=== PATIENT | female | born 1980 | race African-American/Black ===

== ENCOUNTER 2017-08-07 16:18 | Emergency (ER) | payer SELFPAY ==
[~2017-08-07] VITALS: Ht 180.3 cm; Wt 110.0 kg
[2017-08-07 17:03] VITALS: BP 164/76; PULSE 86; RESP 16; TEMP 98.4; O2SAT 99
[2017-08-07] MEDS ORDERED: AMOX875T PO (19:36)
--- NOTE | 2017-08-07 19:39 | PD ---
HPI Chief Complaint: Cold / Flu Symptoms Time Seen by Provider: 18:14 Travel History International Travel<30 days: No Contact w/Intl Traveler<30days: No Traveled to known affect area: No History of Present Illness HPI 36-year-old female that presents to the ED for evaluation of cold like symptoms. Patient states that she's had cold like symptoms for about 3 days now. Low-grade fever. Congestion and cough. Denies any history of asthma or COPD. She does state that she is currently . Denies any chest pain. Cough is productive. No other medical issues. She states that she's in contact with a lot of people who are sick at home. States taking Benadryl with some relief. PFSH Past Medical History Medical History: Denies Significant Hx Tetanus Vaccination: < 5 Years Influenza Vaccination: No ?: Not Past Surgical History Surgical History: No Previous Surgery Social History Alcohol Use: Yes (SOCIAL) Tobacco Use: Yes (SOCIAL) Substance Use: No Allergies-Medications (Allergen,Severity, Reaction): Coded Allergies: loratadine (Verified Allergy, Unknown, 08/07/17) Reported Meds & Prescriptions Reported Meds & Active Scripts Active Amoxicillin 875 Mg Tab 875 Mg PO BID 10 Days Review of Systems Except as stated in HPI: all other systems reviewed are Neg Physical Exam Narrative GENERAL: Well-nourished, well-developed patient in no apparent distress. SKIN: Warm and dry. HEAD: Atraumatic. Normocephalic. EYES: Pupils equal and round reactive to light and accommodation. No scleral icterus. No injection or drainage. ENT: No nasal bleeding or discharge. Mucous membranes pink and moist. TMs are clear with no sign of infection or perforation. No mastoid tenderness. Ear canals are intact bilaterally. No lymphadenopathy. Nostril mucosa is red and moist with clear mucus noted. No sinus tenderness to palpation noted. Tonsils are not enlarged or swollen. No ulvua Deviation. Tongue is midline. NECK: Trachea midline. No JVD. No meningeal signs noted CARDIOVASCULAR: Regular rate and rhythm. RESPIRATORY: No accessory muscle use. Rales heard in the lower lung thacker. Breath sounds equal bilaterally. GASTROINTESTINAL: Abdomen soft, non-tender, nondistended. Hepatic and splenic margins not palpable. MUSCULOSKELETAL: Extremities without clubbing, cyanosis, or edema. No obvious deformities. NEUROLOGICAL: Awake and alert. No obvious cranial nerve deficits. Motor grossly within normal limits. Five out of 5 muscle strength in the arms and legs. Normal speech. PSYCHIATRIC: Appropriate mood and affect; insight and judgment normal. Data Data Last Documented VS Vital Signs Date Time Temp Pulse Resp B/P (MAP) Pulse Ox O2 Delivery O2 Flow Rate FiO2 08/07/17 18:13 Room Air 08/07/17 17:03 98.4 86 16 164/76 (105) 99 Orders Orders Ed Discharge Order (08/07/17 19:36) MDM Medical Decision Making Medical Screen Exam Complete: Yes Emergency Medical Condition: Yes Medical Record Reviewed: Yes Differential Diagnosis Pneumonia versus bronchitis versus sinusitis versus URI Narrative Course 36-year-old female that presents to the ED for evaluation of cold like symptoms. Patient was properly examined and was found to have signs and symptoms consistent appears to be likely or URI. Patient is currently . I do recommend starting patient on amoxicillin. Patient was given a note for work. Told to take OTC meds as needed. See ED worsening symptoms. Follow with PCP. Diagnosis Primary Impression: URI (upper respiratory infection) Qualified Codes: J06.9 - Acute upper respiratory infection, unspecified Patient Instructions: General Instructions Departure Forms: Work Release, Enter return to work date: Aug 08, 2017 Tests/Procedures Additional Instructions: Tylenol for pain and fever. Drink plenty of fluids. Follow-up with PCP. See ED for worsening symptoms. Med/Other Pt SpecificInfo: Prescription(s) given Scripts Amoxicillin (Amoxicillin) 875 Mg Tab 875 MG PO BID for Infection for 10 Days, #20 TAB 0 Refills Prov: Carlos Brown MD 08/07/17 Disposition: 01 DISCHARGE HOME Condition: Stable Myles Motley Aug 07, 2017 19:39
== END 2017-08-07 19:51 | disposition home or self-care (01) ==
LOC: PHEFT 16:18
DX: O99.519 Diseases of the respiratory system complicating pregnancy, unspecified trimester (principal); J06.9 Acute upper respiratory infection, unspecified; O99.330 Smoking (tobacco) complicating pregnancy, unspecified trimester; Z72.0 Tobacco use
CPT/HCPCS: 99283

== ENCOUNTER 2017-11-04 14:27 | Emergency (ER) | payer SELFPAY ==
[~2017-11-04] VITALS: Ht 177.8 cm; Wt 90.0 kg
[~2017-11-04 14:27] MED LIST: AMOX875T PO
[2017-11-04 14:32] VITALS: BP 211/107; PULSE 105; RESP 16; TEMP 98.6; O2SAT 97
[2017-11-04 15:07] LABS: AUTOMATED NEUTROPHIL # 6.5 TH/MM3 (1.8-7.7); BASOPHIL # 0.1 TH/MM3 (0-0.2); BASOPHIL % 0.6 % (0.0-2.0); EOSINOPHIL # 0.2 TH/MM3 (0-0.4); EOSINOPHIL % 2.2 % (0.0-4.0); HEMATOCRIT 40.3 % (35.0-46.0); HEMOGLOBIN 13.3 GM/DL (11.6-15.3); LYMPH % 24.2 % (9.0-44.0); LYMPHOCYTE # 2.4 TH/MM3 (1.0-4.8); MEAN CELL VOLUME 88.9 FL (80.0-100.0); MEAN CORPUSCULAR HEMOGLOBIN 29.5 PG (27.0-34.0); MEAN CORPUSCULAR HGB CONC 33.1 % (32.0-36.0); MONO % 7.2 % (0.0-8.0); MONOCYTE # 0.7 TH/MM3 (0-0.9); NEUT % 65.8 % (16.0-70.0); PLATELET COUNT 260 TH/MM3 (150-450); RED BLOOD COUNT 4.53 MIL/MM3 (4.00-5.30); RED CELL DISTRIBUTION WIDTH 13.6 % (11.6-17.2); WHITE BLOOD COUNT 9.8 TH/MM3 (4.0-11.0)
--- NOTE | 2017-11-04 15:08 | PD ---
HPI Chief Complaint: Psychiatric Symptoms Time Seen by Provider: 14:33 Travel History International Travel<30 days: No Contact w/Intl Traveler<30days: No Traveled to known affect area: No History of Present Illness HPI 36-year-old female that presents to the ED for evaluation of psychiatric evaluation. Patient was Méndez acted by police after apparently she made suicidal threats to her significant other. Apparently patient is from her significant other. Patient made suicidal threats in an argument. Per patient she has no desire to actually commit suicide she regressing when she said. Patient she was in about argument with her significant other. She does per Méndez and has a history of bipolar disorder. She apparently per Méndez act states that she was not take all her medications and end her life. Patient denies doing this and denies trying to do this. Per patient he was purely secondary to argument. Denies any medical problems at this time. She does appear to be somewhat anxious on exam and very tearful. History is somewhat limited because of this. She denies any other medical issues. She denies any drugs or alcohol. Denies any homicidal ideation. Symptoms appear to have worsened secondary to separation. PFSH Past Medical History ?: Not Social History Alcohol Use: Yes (SOCIAL) Tobacco Use: Yes (SOCIAL) Substance Use: No Allergies-Medications (Allergen,Severity, Reaction): Coded Allergies: loratadine (Verified Allergy, Unknown, 11/04/17) Reported Meds & Prescriptions Reported Meds & Active Scripts Active Amoxicillin 875 Mg Tab 875 Mg PO BID 10 Days Review of Systems Except as stated in HPI: all other systems reviewed are Neg Physical Exam Narrative GENERAL: SKIN: Warm and dry. HEAD: Atraumatic. Normocephalic. EYES: Pupils equal and round. No scleral icterus. No injection or drainage. ENT: No nasal bleeding or discharge. Mucous membranes pink and moist. NECK: Trachea midline. No JVD. CARDIOVASCULAR: Regular rate and rhythm. RESPIRATORY: No accessory muscle use. Clear to auscultation. Breath sounds equal bilaterally. GASTROINTESTINAL: Abdomen soft, non-tender, nondistended. Hepatic and splenic margins not palpable. MUSCULOSKELETAL: Extremities without clubbing, cyanosis, or edema. No obvious deformities. Full range of motion of the upper and lower extremities bilaterally. 2+ pulses bilaterally. NEUROLOGICAL: Awake and alert. No obvious cranial nerve deficits. Motor grossly within normal limits. Five out of 5 muscle strength in the arms and legs. Normal speech. PSYCHIATRIC: Anxious mood and affect; insight and judgment normal. Data Data Last Documented VS Vital Signs Date Time Temp Pulse Resp B/P (MAP) Pulse Ox O2 Delivery O2 Flow Rate FiO2 11/04/17 15:25 99.3 91 18 171/104 (126) 95 Room Air Orders Orders Complete Blood Count With Diff (11/04/17 14:33) Comprehensive Metabolic Panel (11/04/17 14:33) Thyroid Stimulating Hormone (11/04/17 14:33) Urinalysis - C+S If Indicated (11/04/17 14:33) Ed Urine Pregnancytest Poc (11/04/17 14:33) Psych Screen (11/04/17 14:33) Drug Screen, Random Urine (11/04/17 14:33) Alcohol (Ethanol) (11/04/17 14:33) Diet Regular Basic (11/04/17 Dinner) Lorazepam (Ativan) (11/04/17 15:15) Clonidine (Catapres) (11/04/17 15:15) Labs Laboratory Tests Test 11/04/17 14:43 White Blood Count 9.8 TH/MM3 Red Blood Count 4.53 MIL/MM3 Hemoglobin 13.3 GM/DL Hematocrit 40.3 % Mean Corpuscular Volume 88.9 FL Mean Corpuscular Hemoglobin 29.5 PG Mean Corpuscular Hemoglobin Concent 33.1 % Red Cell Distribution Width 13.6 % Platelet Count 260 TH/MM3 Mean Platelet Volume 9.0 FL Neutrophils (%) (Auto) 65.8 % Lymphocytes (%) (Auto) 24.2 % Monocytes (%) (Auto) 7.2 % Eosinophils (%) (Auto) 2.2 % Basophils (%) (Auto) 0.6 % Neutrophils # (Auto) 6.5 TH/MM3 Lymphocytes # (Auto) 2.4 TH/MM3 Monocytes # (Auto) 0.7 TH/MM3 Eosinophils # (Auto) 0.2 TH/MM3 Basophils # (Auto) 0.1 TH/MM3 CBC Comment DIFF FINAL Differential Comment Blood Urea Nitrogen 10 MG/DL Creatinine 0.91 MG/DL Random Glucose 101 MG/DL Total Protein 8.1 GM/DL Albumin 4.2 GM/DL Calcium Level 8.9 MG/DL Alkaline Phosphatase 80 U/L Aspartate Amino Transf (AST/SGOT) 17 U/L Alanine Aminotransferase (ALT/SGPT) 30 U/L Total Bilirubin 0.2 MG/DL Sodium Level 139 MEQ/L Potassium Level 3.8 MEQ/L Chloride Level 108 MEQ/L Carbon Dioxide Level 20.5 MEQ/L Anion Gap 11 MEQ/L Estimat Glomerular Filtration Rate 86 ML/MIN Thyroid Stimulating Hormone 3rd Gen 1.380 uIU/ML Ethyl Alcohol Level LESS THAN 3 MG/DL MDM Medical Decision Making Medical Screen Exam Complete: Yes Emergency Medical Condition: Yes Medical Record Reviewed: Yes Interpretation(s) CBC & BMP Diagram 11/04/17 14:43 Total Protein 8.1, Albumin 4.2, Calcium Level 8.9, Alkaline Phosphatase 80, Aspartate Amino Transf (AST/SGOT) 17, Alanine Aminotransferase (ALT/SGPT) 30, Total Bilirubin 0.2 Differential Diagnosis Depression versus suicidal ideation versus anxiety versus adjustment disorder versus mood disorder versus bipolar disorder versus schizophrenia versus paranoid disorder versus psychosis versus substance abuse versus alcohol abuse versus alcohol induced psychosis versus homicidality addition versus cutting versus personality disorder Narrative Course 36-year-old female that presents to the ED for evaluation of psych. Patient was properly examined and was found to have signs and symptoms consistent with psychiatric illness. Labs were ordered. Patient was found to have a high blood pressure in the 200s systolic. No history of high blood pressure but she is very tearful on exam. I order clonidine and Ativan to help her calm down. Patient will be medically clear pending labs. Okay to be seen by psych. Mental health screening was discussed with the patient. Diagnosis Primary Impression: Adjustment disorder Qualified Codes: F43.22 - Adjustment disorder with anxiety Myles Motley Nov 04, 2017 15:08
[2017-11-04] MEDS ORDERED: LORazepam 0.5 MG TAB PO ONE (15:15)
[2017-11-04] MEDS ORDERED: cloNIDine HCL 0.1 MG TAB PO ONE (15:15)
[2017-11-04 15:17] VITALS: BP_SYST 171; BP_SYST 200; BP_DIAS 104; BP_DIAS 98
[2017-11-04 15:25] VITALS: BP 171/104; PULSE 91; RESP 18; TEMP 99.3; O2SAT 95
[2017-11-04 15:38] LABS: ALBUMIN 4.2 GM/DL (3.4-5.0); ALT (GPT) 30 U/L (10-53); AST (GOT) 17 U/L (15-37); BICARBONATE 20.5 MEQ/L (21.0-32.0); BLOOD UREA NITROGEN 10 MG/DL (7-18); CALCIUM 8.9 MG/DL (8.5-10.1); CHLORIDE 108 MEQ/L (98-107); CREATININE 0.91 MG/DL (0.50-1.00); GLOMERULAR FILTRATION RATE 86 ML/MIN (>89); GLUCOSE,RANDOM 101 MG/DL (74-106); SODIUM (NA) 139 MEQ/L (136-145)
[2017-11-04 15:48] LABS: ALKALINE PHOSPHATASE 80 U/L (45-117); TOTAL BILIRUBIN ADULT 0.2 MG/DL (0.2-1.0); TOTAL PROTEIN 8.1 GM/DL (6.4-8.2)
[2017-11-04 16:42] VITALS: BP 169/92; PULSE 82; RESP 16; TEMP 97.6; O2SAT 97
--- NOTE | 2017-11-04 17:22 | PD ---
History of Present Illness Chief Complaint: Psychiatric Symptoms Time Seen by Provider: 16:30 Travel History International Travel<30 Days: No Contact w/Intl Traveler<30days: No Known affected area: No History of Present Illness: Patient is a 36-year-old -[place] female with 3 children placed under Méndez act by the [facility] [employer]. Per Méndez act states," Kandace made suicidal threats to kill herself to [place] he did not return home. They stated she was going to overdose on pain pills that were inside the house. Washingtion advised kandace has a 10 to kill himself in the past of overdosing on medications. Foster states Kandace is bipolar, however she is not taking her medications." Patient states that she and her are . Yesterday she wanted to spend a little time with her friends just to get away and her went "out of control." She states that her is very controlling. States they have been a long time and is in the . They have three children ( 8,10 and 11). She states that she is not suicidal and lives for her children. States that 10 years ago she was diagnosed with Bipolar and placed on Abilify, but she did not like how the medication made her feel so she stopped taking it. No drugs, does not smoke and only drinks for special occasions. Endorses no suicidal or homicidal ideations. Collateral: Attempted to call Cristian at [phone] with no response. Chart reviewed and discussed with LIZZETTE Long. Patient is in room J 106 in a hospital gown. She is well groom and slightly overweight. Alert and oriented. Insight and judgement good. Remote and distant memory intact. Steady gait. Mood is sad and is related to her pending divorce. She is articulate and bright. No perceptual delusions. Denies any SI/HI. Patient is at low risk for self harm or harm of others. She is focused on moving forward after the divorce with her children. She is aware of resources through the if she is in need of counseling or mental health services. Based on her presentation and endorsing no suicidal ideations, I will lift the Méndez Act. Dx: Mood Disorder PFSH Past Medical History ?: Not Psychiatric History Psychiatric History Ten years ago dx with bipolar, placed on abilify , but never took the medication , did not like how it made her feel. Social History Hx Alcohol Use: Yes (SOCIAL) Hx Tobacco Use: Yes (SOCIAL) Hx Substance Use: No Allergies-Medications (Allergen,Severity, Reaction): Coded Allergies: loratadine (Verified Allergy, Unknown, 11/04/17) Reported Meds & Prescriptions Reported Meds & Active Scripts Active Amoxicillin 875 Mg Tab 875 Mg PO BID 10 Days Mental Status Examination Appearance: Appropriate Consciousness: Alert Orientation: x4 Motor Activity: Normal gait Speech: Unremarkable Language: Adequate Fund of Knowledge: Adequate Attention and Concentration: Adequate Memory: Unremarkable Mood: Appropriate Affect: Appropriate Thought Process & Associations: Intact Thought Content: Appropriate Hallucination Type: None Delusion Type: None Suicidal Ideation: No Suicidal Plan: No Suicidal Intention: No Homicidal Ideation: No Homicidal Plan: No Homicidal Intention: No Insight: Adequate Judgment: Adequate MDM Medical Decision Making Medical Record Reviewed: Yes Assessment/Plan Patient placed under a Méndez Act by her . Patient states that they are going through a divorce and that he is getting more controlling. Patient is focused on completing the divorce process and moving on with her children. She endorses no suicidal ideations. Patient is at low risk for self harm or harm of others. She lives for her children. Based on the patient's presentation, I will lift the Méndez Act. Orders Orders Complete Blood Count With Diff (11/04/17 14:33) Comprehensive Metabolic Panel (11/04/17 14:33) Thyroid Stimulating Hormone (11/04/17 14:33) Urinalysis - C+S If Indicated (11/04/17 14:33) Ed Urine Pregnancytest Poc (11/04/17 14:33) Psych Screen (11/04/17 14:33) Drug Screen, Random Urine (11/04/17 14:33) Alcohol (Ethanol) (11/04/17 14:33) Diet Regular Basic (11/04/17 Dinner) Lorazepam (Ativan) (11/04/17 15:15) Clonidine (Catapres) (11/04/17 15:15) Results Vital Signs Date Time Temp Pulse Resp B/P (MAP) Pulse Ox O2 Delivery O2 Flow Rate FiO2 11/04/17 17:04 11/04/17 16:42 97.6 82 16 169/92 (117) 97 Room Air 11/04/17 15:25 99.3 91 18 171/104 (126) 95 Room Air 11/04/17 15:17 171/104 (126) 11/04/17 14:32 98.6 105 16 211/107 (141) 97 Laboratory Tests Test 11/04/17 14:43 White Blood Count 9.8 Red Blood Count 4.53 Hemoglobin 13.3 Hematocrit 40.3 Mean Corpuscular Volume 88.9 Mean Corpuscular Hemoglobin 29.5 Mean Corpuscular Hemoglobin Concent 33.1 Red Cell Distribution Width 13.6 Platelet Count 260 Mean Platelet Volume 9.0 Neutrophils (%) (Auto) 65.8 Lymphocytes (%) (Auto) 24.2 Monocytes (%) (Auto) 7.2 Eosinophils (%) (Auto) 2.2 Basophils (%) (Auto) 0.6 Neutrophils # (Auto) 6.5 Lymphocytes # (Auto) 2.4 Monocytes # (Auto) 0.7 Eosinophils # (Auto) 0.2 Basophils # (Auto) 0.1 CBC Comment DIFF FINAL Differential Comment Blood Urea Nitrogen 10 Creatinine 0.91 Random Glucose 101 Total Protein 8.1 Albumin 4.2 Calcium Level 8.9 Alkaline Phosphatase 80 Aspartate Amino Transf (AST/SGOT) 17 Alanine Aminotransferase (ALT/SGPT) 30 Total Bilirubin 0.2 Sodium Level 139 Potassium Level 3.8 Chloride Level 108 Carbon Dioxide Level 20.5 Anion Gap 11 Estimat Glomerular Filtration Rate 86 Thyroid Stimulating Hormone 3rd Gen 1.380 Ethyl Alcohol Level LESS THAN 3 Diagnosis Primary Impression: Mood disorder [facility] Departure Forms: Tests/Procedures Patient Instructions: General Instructions, Stress (ED), Mood Disorders (ED) Disposition: 01 DISCHARGE HOME Condition: Stable Elyse King Nov 04, 2017 17:22
--- NOTE | 2017-11-04 17:43 | PD ---
Physical Exam Time Seen by Provider: 17:42 Narrative THELMA Tapia has evaluated the patient, lifted the Méndez act and cleared the patient for discharge. Data Data Last Documented VS Vital Signs Date Time Temp Pulse Resp B/P (MAP) Pulse Ox O2 Delivery O2 Flow Rate FiO2 11/04/17 17:04 11/04/17 16:42 97.6 82 16 97 Room Air Orders Orders Complete Blood Count With Diff (11/04/17 14:33) Comprehensive Metabolic Panel (11/04/17 14:33) Thyroid Stimulating Hormone (11/04/17 14:33) Urinalysis - C+S If Indicated (11/04/17 14:33) Ed Urine Pregnancytest Poc (11/04/17 14:33) Psych Screen (11/04/17 14:33) Drug Screen, Random Urine (11/04/17 14:33) Alcohol (Ethanol) (11/04/17 14:33) Diet Regular Basic (11/04/17 Dinner) Lorazepam (Ativan) (11/04/17 15:15) Clonidine (Catapres) (11/04/17 15:15) Labs Laboratory Tests Test 11/04/17 14:43 White Blood Count 9.8 TH/MM3 Red Blood Count 4.53 MIL/MM3 Hemoglobin 13.3 GM/DL Hematocrit 40.3 % Mean Corpuscular Volume 88.9 FL Mean Corpuscular Hemoglobin 29.5 PG Mean Corpuscular Hemoglobin Concent 33.1 % Red Cell Distribution Width 13.6 % Platelet Count 260 TH/MM3 Mean Platelet Volume 9.0 FL Neutrophils (%) (Auto) 65.8 % Lymphocytes (%) (Auto) 24.2 % Monocytes (%) (Auto) 7.2 % Eosinophils (%) (Auto) 2.2 % Basophils (%) (Auto) 0.6 % Neutrophils # (Auto) 6.5 TH/MM3 Lymphocytes # (Auto) 2.4 TH/MM3 Monocytes # (Auto) 0.7 TH/MM3 Eosinophils # (Auto) 0.2 TH/MM3 Basophils # (Auto) 0.1 TH/MM3 CBC Comment DIFF FINAL Differential Comment Blood Urea Nitrogen 10 MG/DL Creatinine 0.91 MG/DL Random Glucose 101 MG/DL Total Protein 8.1 GM/DL Albumin 4.2 GM/DL Calcium Level 8.9 MG/DL Alkaline Phosphatase 80 U/L Aspartate Amino Transf (AST/SGOT) 17 U/L Alanine Aminotransferase (ALT/SGPT) 30 U/L Total Bilirubin 0.2 MG/DL Sodium Level 139 MEQ/L Potassium Level 3.8 MEQ/L Chloride Level 108 MEQ/L Carbon Dioxide Level 20.5 MEQ/L Anion Gap 11 MEQ/L Estimat Glomerular Filtration Rate 86 ML/MIN Thyroid Stimulating Hormone 3rd Gen 1.380 uIU/ML Ethyl Alcohol Level LESS THAN 3 MG/DL MDM Supervised Visit with [facility]: No Narrative Course THELMA Tapia has evaluated the patient, lifted the Méndez act and cleared the patient for discharge. Patient contracts safety. Denies suicidal or homicidal ideations. Patient will be provided community resource packet to [facility] for follow-up. Has friends and family for support. Patient was medically cleared by alternate provider prior to psych screening. Patient has been evaluated by psychiatry and and is now cleared for discharge. Diagnosis Primary Impression: Mood disorder Referrals: [facility] (Out patient) [facility] as needed Primary Care Physician Psychiatrist [facility] Patient Instructions: General Instructions, Stress (ED), Mood Disorders (ED) Departure Forms: Tests/Procedures Additional Instruction: Contract safety to your self and others Follow-up with psychiatry Follow-up with primary care provider Follow-up with Andrea Pelayo Return to the emergency department immediately with worsening of symptoms Med/Other Pt SpecificInfo: No Change to Meds, No Meds Exist/No RX given Disposition: 01 DISCHARGE HOME Condition: Stable Silvia Muro Nov 04, 2017 17:43
== END 2017-11-04 17:45 | disposition home or self-care (01) ==
LOC: NEPJ 14:27
DX: F43.22 Adjustment disorder with anxiety (principal); F31.9 Bipolar disorder, unspecified; Z72.0 Tobacco use
CPT/HCPCS: 80053; 80307; 84443; 84703; 85025; 99283